=== PATIENT | male | born 1955 | race Caucasian/White ===

== ENCOUNTER → 2019-09-28 | Outpatient (CLI) | payer MEDICARE, OTHER ==
[~2019-09-28] MED LIST: FLEXERIL10 MG PO; MICARDIS80 MG PO; PERCOCET 500 MG1 TAB PO
== END ==
LOC: COL.VAS 08:45
DX: M79.89 Other specified soft tissue disorders (principal); Z96.652 Presence of left artificial knee joint

== ENCOUNTER → 2023-05-31 | Outpatient (CLI) | payer MEDICARE ==
[~2023-05-31] MED LIST changes: +BUSPAR10 MG PO; +EUTHYROX25 MCG PO; +HYZAAR 25 MG-101 TAB PO; +LEVOXYL0.1 MG PO; +LIPITOR 10MG10 MG PO; +NORCO 325 MG-51 TAB PO; +TOPROL XL 50MG50 MG PO
== END ==
LOC: COL.RAD 10:49
DX: R55 Syncope and collapse (principal)

== ENCOUNTER → 2023-06-13 | Outpatient (CLI) | payer MEDICARE ==
[~2023-06-13] MED LIST changes: +Iohexol 300 - 100 ML VIAL IV ONE; +NS 100 ML IV SCH
== END ==
LOC: COL.RAD 06:46
DX: I65.23 Occlusion and stenosis of bilateral carotid arteries (principal); I77.1 Stricture of artery
CPT/HCPCS: Q9967

== ENCOUNTER 2023-09-13 03:41 | Emergency (ER) | payer MEDICARE ==
[~2023-09-13] VITALS: Ht 175.3 cm; Wt 90.9 kg
[~2023-09-13 03:41] MED LIST changes: -Iohexol 300 - 100 ML VIAL IV ONE; -NS 100 ML IV SCH
[2023-09-13 03:43] VITALS: TEMP 98.7
[2023-09-13 03:55] LABS: BASO # 0.1 K/mm3 (0.0-0.2); EOS # 0.3 K/mm3 (0.0-0.7); EOS % 5.6 % (0.0-4.0); GRAN # 2.5 K/mm3 (1.4-6.5); GRAN % 52.2 % (42.2-75.2); HEMOGLOBIN 11.1 g/dl (13.5-18.0); LYMPH # 1.5 K/mm3 (1.2-3.4); LYMPH % 31.5 % (20.0-51.0); MEAN CELL VOLUME 74 fl (80.0-100.0); MEAN CORPUSCULAR HEMOGLOBIN 23 pg (27-31); MEAN CORPUSCULAR HGB CONC 31 g/dl (33.0-37.0); MEAN PLATELET VOLUME 10.7 fl (7.4-10.4); MONO # 0.5 K/mm3 (0.1-0.6); MONO % 9.5 % (1.7-9.3); PLATELET COUNT 154 K/mm3 (130-400); RED BLOOD COUNT 4.88 M/mm3 (4.20-5.60); REDCELL DISTRIBUTION WIDTH-CV 16.2 % (11.5-14.5)
[2023-09-13 04:00] LABS: PROTHROMBIN TIME 11.1 SECONDS (9.7-12.8)
[2023-09-13] MEDS ORDERED: Iohexol 300 - 100 ML VIAL IV ONE (04:02)
[2023-09-13 04:03] LABS: PARTIAL THROMBOPLASTIN TIME 30.1 SECONDS (26.0-37.0)
[2023-09-13] MEDS ORDERED: NS 100 ML IV SCH (04:03)
[2023-09-13] MEDS ORDERED: niCARdipine 200 ML IV ONE (04:15)
[2023-09-13 04:16] LABS: ALANINE AMINOTRANSFERASE 19 U/L (0-55); ALBUMIN 3.8 g/dL (3.4-4.8); ANION GAP 11 mmol/L (7-16); AST,SGOT 20 U/L (5-34); CALCIUM 9.2 mg/dL (8.4-10.2); CHLORIDE 109 mEq/L (98-107); CREATININE, serum 0.95 mg/dL (0.72-1.25); GLUCOSE 129 mg/dL (70-99); POTASSIUM 3.5 mEq/L (3.5-4.5); SODIUM 143 mEq/L (136-145); TOTAL PROTEIN 6.7 g/dl (6.2-8.1)
[2023-09-13 04:25] LABS: TROPONIN-I < 0.010 ng/mL (0.00-0.033)
[2023-09-13] MEDS ORDERED: ASPIRIN 81M81 MG/TA2 PO (04:25)
[2023-09-13] MEDS ORDERED: FLOMAX 0.40.4 MG/CAP PO (04:27)
[2023-09-13 04:32] LABS: ALKALINE PHOSPHATASE 63 U/L (40-150); BILIRUBIN,TOTAL 0.4 mg/dL (0.2-1.2); BLOOD UREA NITROGEN 15 mg/dL (8-26)
[2023-09-13] MEDS ORDERED: NS IV ONE ×2 (05:15)
[2023-09-13] MEDS ORDERED: levETIRAcetam 100 ML IV ONE (05:15)
[2023-09-13] MEDS ORDERED: DESMOPRESSIN IV ONE ×2 (05:15)
[2023-09-13] MEDS ORDERED: Ondansetron 4 MG/2 ML VIAL IV ONE (06:45)
[2023-09-13 08:00] VITALS: BP 125/63; PULSE 109
== END 2023-09-13 08:00 | disposition short-term general hospital (02) ==
LOC: COL.ER 03:41
PROVIDERS: Emergency Medicine
DX: I61.9 Nontraumatic intracerebral hemorrhage, unspecified (principal); G83.24 Monoplegia of upper limb affecting left nondominant side; I10 Essential (primary) hypertension
CPT/HCPCS: J1953; J2404; J2405; J2597; Q9967

== ENCOUNTER 2023-12-01 14:46 | Emergency (ER) | payer MEDICARE ==
[~2023-12-01] VITALS: Ht 175.3 cm; Wt 104.5 kg
[~2023-12-01 14:46] MED LIST changes: +ASPIRIN 81M81 MG/TA2 PO; +BLUE-EMU LIDOC1 EACH TP; +CARDURA4 MG PEG; +CARDURA4 MG PO; +DESITIN MAXIMUM S40% TP; +FLOMAX 0.40.4 MG/CAP PO; +LEADER CLE17 GM/Dose PO; +LIORESAL 1010 MG/TAB PO; +LOPRESSOR 225 MG/TAB PO; +MELATIN 3 MG-11 TAB PO; +NEURONTIN300 MG/CAP PO; +PANCREAZE 437501 ECC PEG; +PEPCID 20MG TAB20 MG PEG; +PEPCID 20MG TAB20 MG PO; +REMERON 15M15 MG/TA1 PO; +SODIUM BICARBO650 MG PEG; +SYNTHROID0.1 MG/TAB PEG; +SYNTHROID0.1 MG/TAB PO; +TYLENOL 500MG500 MG PO; +ZOFRAN ODT4 MG PO
[2023-12-01 14:50] VITALS: TEMP 98.1
[2023-12-01] MEDS ORDERED: NS 1,000 ML IV ONE (15:15)
[2023-12-01 15:46] LABS: BASO % 0.7 % (0.0-2.0); EOS # 0.4 K/mm3 (0.0-0.7); EOS % 9.8 % (0.0-4.0); GRAN # 2.2 K/mm3 (1.4-6.5); HEMOGLOBIN 10.5 g/dl (13.5-18.0); LYMPH # 1.2 K/mm3 (1.2-3.4); MEAN CELL VOLUME 74 fl (80.0-100.0); MEAN CORPUSCULAR HEMOGLOBIN 22 pg (27-31); MEAN CORPUSCULAR HGB CONC 30 g/dl (33.0-37.0); MONO # 0.5 K/mm3 (0.1-0.6); MONO % 10.3 % (1.7-9.3); PLATELET COUNT 156 K/mm3 (130-400); RED BLOOD COUNT 4.79 M/mm3 (4.20-5.60); REDCELL DISTRIBUTION WIDTH-CV 18.4 % (11.5-14.5)
[2023-12-01 16:00] LABS: ALBUMIN 3.7 g/dL (3.4-4.8); BILIRUBIN,TOTAL 0.5 mg/dL (0.2-1.2); CALCIUM 9.9 mg/dL (8.4-10.2); CREATININE, serum 1.05 mg/dL (0.72-1.25); POTASSIUM 3.5 mEq/L (3.5-4.5); TOTAL PROTEIN 6.7 g/dl (6.2-8.1)
[2023-12-01 16:02] LABS: COLLECTION METHOD CLEAN CATCH
[2023-12-01 16:08] LABS: HEMATOCRIT 35.4 % (42.0-52.0)
[2023-12-01 16:10] LABS: URINE APPEARANCE CLEAR (CLEAR/HAZY); URINE BLOOD NEGATIVE (NEGATIVE); URINE COLOR YELLOW (YELLOW); URINE GLUCOSE NEGATIVE (NEGATIVE); URINE KETONE TRACE (NEGATIVE); URINE NITRATE NEGATIVE (NEGATIVE); URINE PROTEIN(semi-quant) NEGATIVE (NEGATIVE)
[2023-12-01] MEDS ORDERED: Lidocaine 4% Topical Patch TP ONE (16:45)
[2023-12-01] MEDS ORDERED: Gabapentin 100 MG CAP PO ONE (17:45)
[2023-12-01] MEDS ORDERED: LORazepam 2 MG/ML 1 ML VIAL IV ONE (17:45)
[2023-12-01] MEDS ORDERED: PERCOCET 325 MG1 TA2 PO (17:50)
[2023-12-01] MEDS ORDERED: NEURONTIN100 MG/CAP PO (17:50)
[2023-12-01] MEDS ORDERED: diphenhydrAMINE 50 MG/ML 1 ML VIAL IV ONE (18:00)
[2023-12-01 18:20] VITALS: BP 144/67; PULSE 93
== END 2023-12-01 19:00 ==
LOC: COL.ER 14:46
PROVIDERS: Family Medicine
DX: M79.2 Neuralgia and neuritis, unspecified (principal); R41.82 Altered mental status, unspecified; Z86.73 Personal history of transient ischemic attack (TIA), and cerebral infarction without residual deficits
CPT/HCPCS: J1200; J2060; J7030

== ENCOUNTER → 2024-02-02 | Outpatient (CLI) | payer MEDICARE ==
[~2024-02-02] MED LIST changes: +NEURONTIN100 MG/CAP PO; +PERCOCET 325 MG1 TA2 PO
== END ==
LOC: MHCPAIN 13:24
DX: M79.2 Neuralgia and neuritis, unspecified (principal); I61.9 Nontraumatic intracerebral hemorrhage, unspecified; I69.352 Hemiplegia and hemiparesis following cerebral infarction affecting left dominant side
CPT/HCPCS: G0463